=== PATIENT | female | born 1945 | race Caucasian/White ===

== ENCOUNTER → 2018-01-04 10:33 | Outpatient (BNVA) | payer MEDICARE, BC, SELFPAY | PROVIDERS: Visit Provider Orthopaedic Surgery | DX: Z47.1 Aftercare following joint replacement surgery (principal); Z96.652 Presence of left artificial knee joint; Z96.641 Presence of right artificial hip joint | CPT/HCPCS: 99211; 99213 ==

== ENCOUNTER 2019-05-21 08:58 | Outpatient (CLI) | payer MEDICARE, BC, SELFPAY ==
--- NOTE | 2019-05-21 08:45 | DI.RAD_ITS ---
EXAM: XR KNEE RT 3V AP,LAT,MIMA CLINICAL HISTORY: RIGHT KNEE PAIN TECHNIQUE: COMPARISON: RIGHT KNEE LIMITED 1 OR 2 VIEW from 10/12/2016 FINDINGS: Three views were obtained. There is narrowing of the medial tibiofemoral cartilaginous joint space. Mild subchondral sclerosis noted at the medial tibiofemoral joint. Mild marginal osteophyte formati on seen all 3 joints of the knee. Prominent enthesophytes of the superior and inferior patellar pole s noted. 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 Probable small joint effusion.
== END 2019-05-21 09:18 ==
PROVIDERS: PCP Family Medicine; Referring Provider Family Medicine; Visit Provider Orthopaedic Surgery
DX: M25.561 Pain in right knee (principal); M17.11 Unilateral primary osteoarthritis, right knee
CPT/HCPCS: 20610; 73562; 99213; J1040